=== PATIENT | male | born 1965 | race Caucasian/White ===

== ENCOUNTER → 2019-07-17 07:54 | Outpatient (CLI) | payer OTHER, SELFPAY ==
--- NOTE | 2019-07-17 08:33 | PM.TREADMILL ---
Cardiac Stress Test Report Referral & Results Date Patient Seen: 07/17/19 Time Patient Seen: 08:00 Requesting provider: Leandro Vail Indication: Chest pain Rest ECG: Normal sinus rhythm Procedure Note: Today following both written and verbal informed consent, the patient was exercised according to a standard Jame protocol. The patient exercised for a total of 12 minutes 43 seconds achieving a maximum heart rate of 165. Patient's maximum systolic blood pressure was 192. This was an estimated 12.8 METs. Normal hemodynamic response to exercise. No signs or symptoms of angina. No change in rhythm. Excellent exercise capacity (MIR better than -20%). Impression: Low probability for ischemia. Barkley treadmill score of 12 is associated with 97% 5 year survival from cardiac causes of mortality. Please note: Actual ECG tracings can be found in the PACS system.
== END ==
PROVIDERS: PCP Internal Medicine; Visit Provider Internal Medicine
DX: R07.9 Chest pain, unspecified (principal); R00.2 Palpitations
CPT/HCPCS: 93016; 93017; 93018

== ENCOUNTER → 2022-05-11 07:31 | Outpatient (CLI) | payer OTHER, SELFPAY ==
[2022-05-11 08:13] LABS: Add Manual Diff / Slide Review NO; Basophils Absolute Auto 100 /uL (0-100); Basophils Percent Auto 1.4 % (0-2); Eosinophils Absolute Auto 300 /uL (0-450); Eosinophils Percent Auto 7.2 % (2-4); Hemoglobin 15.7 g/dL (13.5-17.5); Lymphocytes Absolute Auto 1000 /uL (1100-4500); Lymphocytes Percent Auto 22.9 % (25-40); Mean Corpuscular HGB Conc 34.8 % (30-36); Mean Corpuscular Hemoglobin 31.5 PG (26-34); Mean Corpuscular Volume 90.3 fL (80-100); Monocytes Absolute Auto 600 /uL (0-900); Monocytes Percent Auto 13.3 % (3-14); Neutrophils Absolute Auto 2400 /uL (1500-7000); Neutrophils Percent Auto 55.2 % (50-75); Platelet Count 197 X10^3/uL (150-400); Red Blood Cell Count 4.98 X10^6/uL (4.5-5.9); Red Cell Distribution Width 12.8 % (11.6-14.8); White Blood Cell Count 4.3 X10^3/uL (4.5-11.0)
[2022-05-11 08:43] LABS: Alanine Aminotransferase 24 IU/L (<50); Albumin 4.3 g/dL (3.5-5.0); Albumin Globulin Ratio 1.6 (1.0-2.8); Alkaline Phosphatase 70 U/L (38-126); Aspartate Aminotransferase 29 IU/L (17-59); BUN Creatinine Ratio 17.7 (6-22); Bilirubin Total 2.3 mg/dL (0.2-1.3); Blood Urea Nitrogen 14 mg/dL (9-20); Calcium 9.1 mg/dL (8.4-10.2); Carbon Dioxide 30 mmol/L (22-32); Chloride 102 mmol/L (98-107); Cholesterol 213 mg/dL (140-199); Estimated Glomerular Filt Rate > 60 mL/min (>60); Globulin 2.7 g/dL (1.7-4.1); Glucose 99 mg/dL (70-100); HDL Cholesterol 59 mg/dL (40-60); HEMOLYSIS < 15 (0-50); LDL Cholesterol Calculated 137 mg/dL (<100); Potassium 4.2 mmol/L (3.4-5.1); Sodium 138 mmol/L (137-145); Triglycerides 85 mg/dL (35-150)
[2022-05-11 08:47] LABS: Creatinine Urine Random 24.3 mg/dL
[2022-05-11 08:58] LABS: Microalbumin Urine Random < 0.6 mg/dL (0-1.6)
[2022-05-11 09:10] LABS: TSH w/ Reflex to FT4 2.58 uIU/mL (0.47-4.68)
== END ==
PROVIDERS: PCP Family Medicine; Referring Provider Family Medicine; Visit Provider Family Medicine
DX: Z13.220 Encounter for screening for lipoid disorders (principal); Z13.1 Encounter for screening for diabetes mellitus; Z13.29 Encounter for screening for other suspected endocrine disorder; R00.2 Palpitations; R07.89 Other chest pain; I10 Essential (primary) hypertension
CPT/HCPCS: 36415; 80053; 80061; 82043; 82570; 84443; 85025

== ENCOUNTER → 2022-07-27 07:47 | Outpatient (CLI) | payer OTHER, SELFPAY ==
[2022-07-27 09:52] LABS: Alanine Aminotransferase 26 IU/L (<50); Albumin Globulin Ratio 1.5 (1.0-2.8); Alkaline Phosphatase 68 U/L (38-126); Aspartate Aminotransferase 29 IU/L (17-59); Bilirubin Direct 0.3 mg/dL (0.0-0.4); Bilirubin Total 2.5 mg/dL (0.2-1.3); Blood Urea Nitrogen 17 mg/dL (9-20); Calcium 9.1 mg/dL (8.4-10.2); Carbon Dioxide 30 mmol/L (22-32); Chloride 101 mmol/L (98-107); Estimated Glomerular Filt Rate > 60 mL/min (>60); Globulin 2.6 g/dL (1.7-4.1); Glucose 69 mg/dL (70-100); HEMOLYSIS < 15 (0-50); Potassium 4.1 mmol/L (3.4-5.1); Sodium 140 mmol/L (137-145); Total Protein 6.6 g/dL (6.3-8.2)
== END ==
PROVIDERS: PCP Family Medicine; Referring Provider Family Medicine; Visit Provider Family Medicine
DX: R17 Unspecified jaundice (principal)
CPT/HCPCS: 36415; 80053; 82248

== ENCOUNTER 2022-09-17 12:29 | Day surgery (SDC) | payer OTHER, SELFPAY ==
--- NOTE | 2022-09-17 | PATH_ITS ---
[facility] Accession Number: [id number] No. of containers..03 Tissue . 01 Material submitted: . PART A: gastrointestinal site - ANTRUM PART B: esophagus, E-G Junction - GE JUNCTION PART C: esophagus - MID ESOPHAGUS BIOPSY . 01 Diagnosis: A. Stomach, Antrum, Biopsy: Antral mucosa with mild chronic gastritis. Negative for Helicobacter by immunohistochemistry. Negative for intestinal metaplasia. Negative for dysplasia and malignancy. . B. Gastroesophageal Junction, Biopsy: Columnar mucosa with no diagnostic abnormality. Negative for intestinal metaplasia by alcian blue stain. Negative for dysplasia and malignancy. . C. Mid Esophagus, Biopsy: Squamous epithelium with no diagnostic abnormality. Intraepithelial eosinophils are not increased. Negative for dysplasia and malignancy. [facility] 09/19/2022 1436 Local . 01 Comment: . . 01 Electronically signed: . aNy Aj MD, Pathologist NPI- [id number] . 01 Gross description: . Part A: ANTRUM: Received in formalin is 1 fragment(s) of hook, soft tissue measuring 0.2 x 0.2 x 0.2 cm submitted entirely in 1 cassette(s) Part B: GE JUNCTION: Received in formalin is 1 fragment(s) of hook, soft tissue measuring 0.2 x 0.2 x 0.2 cm submitted entirely in 1 cassette(s) Part C: MID ESOPHAGUS BIOPSY: Received in formalin are 4 fragment(s) of hook, soft tissue measuring 0.1 x 0.1 x 0.1 cm to 0.3 x 0.2 x 0.2 cm submitted entirely in 1 cassette(s) /[facility] 09/18/2022 1937 Local . 01 Microscopic: . A. An immunohistochemical stain was performed to evaluate for Helicobacter organisms and is negative. The control stain showed appropriate reactivity. . B. An AB/PAS stain is performed to evaluate for intestinal metaplasia and is negative. The control stain showed appropriate reactivity. . * This test was developed and its performance characteristics determined by [facility]. It has not been cleared or approved by the U.[place]. Food and Drug Administration. The FDA has determined that such clearance or approval is not necessary. This test is used for clinical purposes. It should not be regarded as investigational or for research. . 01 Pathologist provided ICD-10: R10.9 . 01 CPT . 225473, 282352, 417714, H57202, 539754 Specimen Comment: A courtesy copy of this report has been sent to [phone] Performed at: 01 [facility] [address] [place] [address], [place], [place] [id number] MD Darío Amado MD Phone: [phone]
[2022-09-17 12:41] VITALS: BP 154/85; PULSE 68; RESP 16; TEMP 37; O2SAT 99; BMI 26.6
[2022-09-17] MEDS: LACTATED RINGERS 1,000 ML 42 ML IV (12:49)
--- NOTE | 2022-09-17 13:28 | PM.HP.1 ---
History of Present Illness History of Present Illness Date Patient Seen: 09/17/22 Time Patient Seen: 13:28 Chief complaint: EGD/Colonoscopy Narrative: Here for EGD colon. I reviewed my office note. No changes. Patient History Family & Social History Social History: household members spouse Tobacco & Substance use: Smoking Status Never smoker alcohol intake current alcohol intake frequency a few times a week Substance Use Type does not use Meds Home Medications and Allergies Home Medications Medication Instructions Recorded Confirmed Type No Known Home Medications 09/17/22 09/17/22 History Allergies Allergy/AdvReac Type Severity Reaction Status Date / Time No Known Drug Allergies Allergy Verified 09/17/22 12:38 Review of Systems Review of Systems ROS: Yes All systems reviewed with the patient and are negative except as otherwise documented Exam Vital Signs (past 8 hours): - 09/17/22 12:41 Temperature 98.6 F Pulse Rate 68 Respiratory Rate 16 Blood Pressure 154/85 H Pulse Oximetry 99 Oxygen Delivery Method Room Air Oxygen Delivery Method Room Air Const General: cooperative HENMT Head: normal to inspection Eyes General: appearance normal, both eyes and all related structures Neck Neck: normal visual inspection Chest Chest: normal inspection of the chest Resp Effort & Inspection: normal respiratory effort Cardio Rate: regular rate GI Inspection: normal to inspection Skin General: no rashes or lesions noted Neuro General: patient alert and patient awake Extrem General: normal to inspection and no pedal edema Psych Appearance: grossly normal Assessment & Plan Assessment & Plan narrative: A 57-year-old male with dysphagia intermittent. Also indicated for colon cancer screening. EGD colonoscopy is pursued today.
--- NOTE | 2022-09-17 13:30 | PM.PREOP ---
Pre-operative Note Interval Note History & Physical reviewed/Exam performed by Physician: Yes Changes to H&P: No ASA Class (for procedural sedation): II
--- NOTE | 2022-09-17 14:12 | P.OP.EGD&C_ITS ---
Operative Date/Time/Diagnoses Date of procedure: 09/17/22 Time of procedure: 14:12 Pre-op diagnosis: Dysphagia, colon cancer screening Post-op diagnosis: same Procedure & Clinicians Study performed: EGD with biopsies and balloon dilatation plus colonoscopy Same procedure as scheduled: Yes Indications: Dysphagia, colon cancer screening Surgeon: Ankur Olivera Procedure Notes SCOAP/Timeout: Done Procedure in detail: After the risks and benefits were explained, written and verbal informed consent was obtained. The patient was brought into the procedure room and placed into the left lateral decubitus position. Please see anesthesia notes for sedation details. The scope was introduced into the mouth through the bite block and advanced under direct visualization to the 2nd portion of the duodenum. The scope was slowly withdrawn carefully examining the mucosa for any defects or lesions. Retroflexed views were accomplished in the stomach. The stomach was decompressed, the scope was then removed from the patient who tolerated the procedure well. The patient was then turned around, a digital rectal examination accomplished. The scope was introduced into the rectum and advanced to the cecum as identified by the appendiceal orifice and ileocecal valve. The scope was slowly withdrawn to carefully examine the mucosa for any defects or lesions. Multiple direct views were made through the dentate line for exclusion of pathology. The colon was decompressed. The scope was withdrawn from the patient who tolerated the procedure well. Pediatric colonoscope Bowel prep adequate Scope withdrawal time: 8 minutes Sedation minutes: 38 Complications: none Impression: 1. Duodenum: No gross lesions were identified throughout from bulb through to the 2nd portion. 2. Stomach: Minimal gastropathy was appreciated and biopsy was acquired from the antrum for exclusion of H pylori or other pathology. Retroflexed views of the LES were unremarkable. 3. Esophagus: The patient had tightly group circumferential rings throughout the mid esophagus. There were some linear vertical furrows as well. Mid esophagus was biopsied after the patient had been dilated to exclude eosinophilic esophagitis. At the GE junction of 35 cm from the incisors there was a severe Schatzki's ring. The diagnostic endoscope would not advance through this so we were forced to dilate before entering the stomach. I used a 10-12 mm dilating balloon. Each setting was held for roughly a minute. 12 mm was the maximum diameter of dilatation today. There was an appropriate rent in the mucosa with some self-limited bleeding that did not require endoscopic intervention following this maneuver. After the patient had been dilated I additionally acquired a biopsy from the ring at GEJ. 4. Colon: This was visually normal throughout. Minimal grade 1-2 internal hemorrhoids were noted on direct views. Endoscopic diagnosis 1. Circumferential midesophageal folds concerning for eosinophilic esophagitis- biopsied. 2. GE junction Schatzki's status post balloon dilatation to 12 mm plus biopsy 3. Mild gastropathy 4. Subtle sliding hiatal hernia (not mentioned above) 5. Visually normal colonoscopy 6. Minimal grade 1 to grade 2 internal hemorrhoids. Post-procedure Plan for aftercare: 1. Await histopathology. 2. Follow up GI clinic in 6 weeks. 3. Repeat colonoscopy 10 years. 4. Contingent on response to the dilatation, repeat EGD can be pursued for progressive dilatation. 5. Continue with caution and extremely well chewed food in small portions at mealtimes. Disposition: PACU
[2022-09-17 14:15] VITALS: BP 99/69; PULSE 60; RESP 19; TEMP 36.1; O2SAT 99
[2022-09-17 14:21] VITALS: BP 104/68; PULSE 61; RESP 15; O2SAT 99
[2022-09-17 14:24] VITALS: PULSE 61; RESP 15; TEMP 36.6; O2SAT 99
== END 2022-09-17 14:34 | disposition home or self-care (01) ==
PROVIDERS: PCP Family Medicine; Referring Provider Internal Medicine Gastroenterology; Visit Provider Internal Medicine Gastroenterology
PROC: 0DJ08ZZ Inspection of Upper Intestinal Tract, Via Natural or Artificial Opening Endoscopic (ICD-10-PCS; CPT 43235; principal; 2022-09-17 14:30)
PROC: 0DJD8ZZ Inspection of Lower Intestinal Tract, Via Natural or Artificial Opening Endoscopic (ICD-10-PCS; CPT 45378; 2022-09-17 14:30)
DX: Z12.11 Encounter for screening for malignant neoplasm of colon (principal); K22.2 Esophageal obstruction; K44.9 Diaphragmatic hernia without obstruction or gangrene; K64.0 First degree hemorrhoids; K29.50 Unspecified chronic gastritis without bleeding
CPT/HCPCS: 43249; 45378; 43239; J2704

== ENCOUNTER 2023-03-18 08:51 | Day surgery (SDC) | payer OTHER, SELFPAY ==
--- NOTE | 2023-03-18 | PATH_ITS ---
[facility] Accession Number: [id number] No. of containers..02 Tissue . 01 Material submitted: . PART A: esophagus, E-G Junction - GE JUNCTION PART B: esophagus - MID-ESOPHAGUS . 01 Diagnosis: A. GE Junction: Squamous mucosa with no diagnostic abnormality. Intraepithelial eosinophils are not significantly increased (approximately 4-5 eosinophils in a single high power field). Negative for dysplasia and malignancy. . B. Mid Esophagus: Squamous mucosa with no diagnostic abnormality. Intraepithelial eosinophils are not increased. Negative for dysplasia and malignancy. [facility] 03/22/2023 1251 Local . 01 Electronically signed: . Marcella Silva MD, Pathologist NPI- [id number] . 01 Gross description: . Part A: GE JUNCTION: Received in formalin is 1 fragment(s) of hook, soft tissue measuring 0.1 x 0.1 x 0.1 cm submitted entirely in 1 cassette(s) Part B: MID-ESOPHAGUS: Received in formalin is 1 fragment(s) of hook, soft tissue measuring 0.3 x 0.2 x 0.1 cm submitted entirely in 1 cassette(s) /[facility] 03/19/2023 2308 Local . 01 Pathologist provided ICD-10: R13.10 . 01 CPT . 745406, 836140 Specimen Comment: A courtesy copy of this report has been sent to [phone] Performed at: 01 [facility] [address] [place] [id number] MD Darío Amado MD Phone: [phone]
[2023-03-18 09:03] VITALS: BP 151/80; PULSE 57; RESP 16; TEMP 36.1; O2SAT 98; BMI 26.6
[2023-03-18] MEDS: LACTATED RINGERS 1,000 ML 42 ML IV (09:15)
--- NOTE | 2023-03-18 09:55 | PM.HP.1 ---
History of Present Illness History of Present Illness Date Patient Seen: 03/18/23 Time Patient Seen: 09:55 Chief complaint: EGD Narrative: Dysphagia. History of possible eosinophilic esophagitis. The last round a biopsies however were negative. Presents today for repeat upper endoscopy assessment and probable further dilatation. He is having struggles with bulky items such as raw carrots bread meat etc.. PFSH Social History household members: spouse Smoking Status: Never smoker alcohol intake: current Meds Home Medications and Allergies Home Medications Medication Instructions Recorded Confirmed Type No Known Home Medications 09/17/22 03/18/23 History Allergies Allergy/AdvReac Type Severity Reaction Status Date / Time No Known Drug Allergies Allergy Verified 09/17/22 12:38 Review of Systems Review of Systems ROS: Yes All systems reviewed with the patient and are negative except as otherwise documented Exam Vital Signs (past 8 hours): - 03/18/23 09:03 Temperature 97 F L Pulse Rate 57 L Respiratory Rate 16 Blood Pressure 151/80 H Pulse Oximetry 98 Oxygen Delivery Method Room Air Oxygen Delivery Method Room Air Const General: cooperative HENMT Head: normal to inspection Eyes General: appearance normal, both eyes and all related structures Neck Neck: normal visual inspection Chest Chest: normal inspection of the chest Resp Effort & Inspection: normal respiratory effort Cardio Rate: regular rate GI Inspection: normal to inspection Skin General: no rashes or lesions noted Neuro General: patient alert and patient awake Extrem General: normal to inspection and no pedal edema Psych Appearance: grossly normal Assessment & Plan Assessment & Plan narrative: 58-year-old male with chronic intermittent dysphagia. Repeat EGD and probable dilatation with biopsies is pursued today.
--- NOTE | 2023-03-18 09:56 | PM.PREOP ---
Pre-operative Note Interval Note History & Physical reviewed/Exam performed by Physician: Yes Changes to H&P: No ASA Class (for procedural sedation): I
--- NOTE | 2023-03-18 10:17 | PM.OP.EGD ---
Operative Date/Time/Diagnoses Date of procedure: 03/18/23 Time of procedure: 10:18 Pre-op diagnosis: Dysphagia Post-op diagnosis: same Procedure & Clinicians Study performed: EGD with dilatation and biopsies Same procedure as scheduled: Yes Indications: Dysphagia Surgeon: Ankur Olivera Procedure Notes SCOAP/Timeout: Done Procedure in detail: After the risks and benefits were explained, written and verbal informed consent was obtained. The patient was brought into the procedure room and placed into the left lateral decubitus position. Please see anesthesia notes for sedation details. The scope was introduced into the mouth through the bite block and advanced under direct visualization to the 2nd portion of the duodenum. The scope was slowly withdrawn carefully examining the mucosa for any defects or lesions. Retroflexed views were accomplished in the stomach. The stomach was decompressed, the scope was then removed from the patient who tolerated the procedure well. Sedation minutes: 15 Complications: none Impression: 1. Duodenum: No significant pathology appreciated from the bulb through to the 2nd portion. 2. Stomach: No significant pathology was appreciated throughout. Retroflexed views disclosed a small sliding hiatal hernia 3. Esophagus: At the level of the GEJ, there was moderate recurrence of stenosis. This appeared smooth and benign. This time however I was able to advance the scope through this into stomach before pursuing the dilatation. I chose a 12-15 mm balloon and we sequentially dilated at 1 minute intervals up to a maximum of 15 mm. There was an appropriate rent in the mucosa at the level of the stenosis following the dilatation. I took a small biopsy from GE junction as well for histopathologic analysis. I then took additional separate biopsies from the midesophagus to re sample for the possibility of eosinophilic infiltration. In the midesophagus there were tightly grouped circumferential folds and some linear grooves as well concerning for EOE. Endoscopic diagnosis 1. GE junction stenosis status post balloon dilatation to 15 mm 2. Small hiatal hernia 3. Midesophageal circumferential folds and linear grooves-biopsied to exclude eosinophilic esophagitis Post-procedure Plan for aftercare: 1. Await histopathology. 2. Slowly advance diet to well chewed food as tolerated. 3. Follow up GI clinic 3 months. Disposition: PACU
[2023-03-18 10:20] VITALS: BP 100/62; PULSE 67; RESP 15; TEMP 36.9; O2SAT 92
[2023-03-18 10:25] VITALS: BP 105/66; PULSE 57; RESP 12; TEMP 36.9; O2SAT 96
[2023-03-18 10:32] VITALS: BP 117/56; PULSE 57; RESP 14; TEMP 36.9; O2SAT 96
[2023-03-18 10:36] VITALS: BP 116/70; PULSE 55; RESP 14; O2SAT 97
== END 2023-03-18 10:59 | disposition home or self-care (01) ==
PROVIDERS: PCP Nurse Practitioner Family; Referring Provider Internal Medicine Gastroenterology; Visit Provider Internal Medicine Gastroenterology
PROC: 0DJ08ZZ Inspection of Upper Intestinal Tract, Via Natural or Artificial Opening Endoscopic (ICD-10-PCS; CPT 43235; principal; 2023-03-18 10:00)
DX: R13.10 Dysphagia, unspecified (principal); K22.2 Esophageal obstruction; K44.9 Diaphragmatic hernia without obstruction or gangrene
CPT/HCPCS: 43249; 43239; J2704